=== PATIENT | male | born 1990 | race Caucasian/White ===

== ENCOUNTER 2021-01-01 14:33 | Emergency (ER) | payer OTHER, SELFPAY ==
[2021-01-01] MEDS ORDERED: LIDOCAINE 1% MPF 5 ML VIAL ONE (15:17)
[2021-01-01] MEDS ORDERED: SMZ./TMP. 800/160 MG TABLET ONE (15:18)
--- NOTE | 2021-01-01 15:51 | ER ---
Nurse's Notes [facility] Name: Jayme Deleon Age: 30 yrs Sex: Male : 1990 Arrival Date: 01/01/2021 Time: 14:34 Bed 10 Private MD: Diagnosis: Cutaneous abscess of neck-cyst Presentation: 01/01 14:43 Chief complaint: Patient states: cyst or boil to back of neck that has been there "for aa5 years but just started hurting a few days ago". Coronavirus screen: At this time, the client does not indicate any symptoms associated with coronavirus-19. Ebola Screen: No symptoms or risks identified at this time. Initial Sepsis Screen: Does the patient meet any 2 criteria? No. Patient's initial sepsis screen is negative. Does the patient have a suspected source of infection? No. Patient's initial sepsis screen is negative. Risk Assessment: Do you want to hurt yourself or someone else? Patient reports no desire to harm self or others. Onset of symptoms was December 2020. 14:43 Acuity: RADHA 4 aa5 14:43 Method Of Arrival: Ambulatory aa5 Historical: - Allergies: 14:44 No Known Allergies; aa5 - PMHx: 14:44 None; aa5 - PSHx: 14:44 None; aa5 - Immunization history:: Client reports having NOT received the Covid vaccine. - Social history:: Smoking status: Patient reports the use of cigarette tobacco products, smokes one pack cigarettes per day. Screenin:39 Abuse screen: Denies threats or abuse. Nutritional screening: No deficits noted. tw2 Tuberculosis screening: No symptoms or risk factors identified. Fall Risk None identified. Assessment: 15:40 General: Appears in no apparent distress. Behavior is calm, cooperative, appropriate tw2 for age. Pain: Complains of pain in back of neck. Neuro: Level of Consciousness is awake, alert, obeys commands, Oriented to person, place, time, situation. Respiratory: Airway is patent Respiratory effort is even, unlabored, Respiratory pattern is regular, symmetrical. Vital Signs: 14:44 BP 126 / 78; Pulse 86; Resp 18 S; Temp 97.7(TE); Pulse Ox 98% on R/A; Weight 133.81 kg aa5 (R); Height 5 ft. 11 in. (180.34 cm) (R); 14:44 Body Mass Index 41.14 (133.81 kg, 180.34 cm) [facility] ED Course: 14:34 Patient arrived in ED. am2 14:43 Arm band placed on. aa5 14:44 Triage completed. aa5 14:49 Emily Ortega FNP-C is [facility]. kb 14:49 Wayne Huggins MD is Attending Physician. kb 15:16 Alondra Holliday, RN is Primary Nurse. [facility] 15:39 Bed in low position. Call light in reach. tw2 15:41 Assist provider with I \\T\\ D: of an abscess on left NECK Set up I\\T\\D tray. Performed by [facility] Emily FISH. 15:56 Patient did not have IV access during this emergency room visit. [facility] Administered Medications: 15:19 Drug: Bactrim (trimethoprim-sulfamethoxazole) (160 mg-800 mg (DS) 1 tablet Route: PO; [facility] 15:19 Drug: Lidocaine (1 %) 5 mg {Note: GIVEN TO PROVIDER TO BE ADMINISTERED.} Route: [facility] Infiltration; Outcome: 15:51 Discharge ordered by MD. kb 15:55 Discharged to [facility] 15:55 Condition: good 15:55 Discharge instructions given to patient, significant other, Instructed on discharge instructions, follow up and referral plans. medication usage, safety practices, Demonstrated understanding of instructions, follow-up care, medications, Prescriptions given X 1. 15:56 Patient left the ED. [facility] Signatures: Emily Ortega FNP-C FNP-Ckb Calderon, Audri RN RN [facility] Carlee Leblanc RN RN [facility] Donna Lynn [facility] Alondra Holliday, [place] IBRAHIM [facility]
--- NOTE | 2021-01-01 15:51 | EDPHYS ---
Physician Documentation [facility] Name: Jayme Deleon Age: 30 yrs Sex: Male : 1990 Arrival Date: 01/01/2021 Time: 14:34 Bed 10 Private MD: ED Physician Wayne Huggins HPI: 01/01 15:54 This 30 yrs old Male presents to ER via Ambulatory with complaints of Neck kb Problem, Cyst, Boil. 15:55 The patient presents with an abscess of the right posterior aspect of neck. kb Description: draining, erythematous, swollen, warm. Onset: The symptoms/episode began/occurred and became worse 1 week(s) ago. Possible cause(s): unknown. Associated signs and symptoms: Pertinent positives: drainage, erythema, swelling, Pertinent negatives: fever. Modifying factors: the symptoms are alleviated by nothing, the symptoms are aggravated by pressure, squeezing the lesion and expressing the contents, touching. Severity of symptoms: At their worst the symptoms were moderate, in the emergency department the symptoms are unchanged. The patient has not experienced similar symptoms in the past. The patient has not recently seen a physician. Pt states he has had a cyst on the back of his neck for years, but it started getting red and hot a week ago. Significant other states she was able to get purulent drainage out of it yesterday that had a foul odor.. Historical: - Allergies: 14:44 No Known Allergies; aa5 - PMHx: 14:44 None; aa5 - PSHx: 14:44 None; aa5 - Immunization history:: Client reports having NOT received the Covid vaccine. - Social history:: Smoking status: Patient reports the use of cigarette tobacco products, smokes one pack cigarettes per day. ROS: 15:53 Constitutional: Negative for fever, chills, and weight loss. kb 15:53 Skin: Positive for abscess, of the right posterior aspect of neck, cyst. 15:53 All other systems are negative. Exam: 15:53 Constitutional: This is a well developed, well nourished patient who is awake, alert, kb and in no acute distress. Head/Face: Normocephalic, atraumatic. ENT: Moist Mucous membranes Respiratory: Respirations even and unlabored. No increased work of breathing, no retractions or nasal flaring. MS/ Extremity: Pulses equal, no cyanosis. Neurovascular intact. Full, normal range of motion. Neuro: Awake and alert, GCS 15, oriented to person, place, time, and situation. Moves all extremities. Normal gait. Psych: Awake, alert, with orientation to person, place and time. Behavior, mood, and affect are within normal limits. 15:53 Skin: abscess, that is small, of the right posterior aspect of neck, with drainage, with fluctuance, that is mild. Vital Signs: 14:44 BP 126 / 78; Pulse 86; Resp 18 S; Temp 97.7(TE); Pulse Ox 98% on R/A; Weight 133.81 kg aa5 (R); Height 5 ft. 11 in. (180.34 cm) (R); 14:44 Body Mass Index 41.14 (133.81 kg, 180.34 cm) aa5 MDM: 14:49 Patient medically screened. kb 15:53 Data reviewed: vital signs, nurses notes. Data interpreted: Pulse oximetry: on room air kb is 98 %. Interpretation: normal. Counseling: I had a detailed discussion with the patient and/or guardian regarding: the historical points, exam findings, and any diagnostic results supporting the discharge/admit diagnosis, the need for outpatient follow up, a general surgeon, to return to the emergency department if symptoms worsen or persist or if there are any questions or concerns that arise at home. 01/01 15:04 Order name: I\T\D Setup; Complete Time: 15:33 kb Administered Medications: 15:19 Drug: Bactrim (trimethoprim-sulfamethoxazole) (160 mg-800 mg (DS) 1 tablet Route: PO; jh5 15:19 Drug: Lidocaine (1 %) 5 mg {Note: GIVEN TO PROVIDER TO BE ADMINISTERED.} Route: jh5 Infiltration; Disposition: 01/02 09:07 Co-signature as Attending Physician, Wayne Huggins MD I agree with the assessment and sp3 plan of care. Disposition Summary: 01/01/21 15:51 Discharge Ordered Location: Home kb Condition: Stable kb Diagnosis - Cutaneous abscess of neck - cyst kb Followup: kb - With: Emergency Department - When: As needed - Reason: Worsening of condition Followup: kb - With: Private Physician - When: 2 - 3 days - Reason: Recheck today's complaints, Continuance of care, Re-evaluation by your physician Discharge Instructions: - Skin Abscess, [id number] kb - Discharge Summary Sheet tw2 Forms: - Medication Reconciliation Form kb - Thank You Letter kb - Antibiotic Education kb - Work release form tw2 - Prescription Opioid Use kb Prescriptions: - Bactrim DS 800-160 mg Oral Tablet - take 1 tablet by ORAL route every 12 hours for 7 days; 14 tablet; Refills: 0, kb Product Selection Permitted Signatures: Emily Ortega FNP-C FNP-Ckb Calderon, Audri, RN RN aa5 Wayne Huggins MD MD sp3 Alondra Holliday RN RN jh5
[2021-01-01 16:49] VITALS: BP 126/78; TEMP 97.7; O2SAT 98
== END 2021-01-01 15:56 | disposition home or self-care (01) ==
LOC: ER 14:33
PROC: 0H94XZZ Drainage of Neck Skin, External Approach (ICD-10-PCS; principal; 2021-01-01)
DX: L02.11 Cutaneous abscess of neck (principal); F17.210 Nicotine dependence, cigarettes, uncomplicated
CPT/HCPCS: 99283